=== PATIENT | male | born 1975 | race Caucasian/White ===

== ENCOUNTER 2017-09-04 17:02 | Emergency (ER) | payer OTHER ==
[2017-09-04 17:11] VITALS: RESP 18
--- NOTE | 2017-09-04 18:04 | EDPHY ---
H & P Time Seen by Provider: 09/04/17 17:53 HPI/ROS: CHIEF COMPLAINT: "Hernia pain" HISTORY OF PRESENT ILLNESS: This 42 y/o male presents with left-sided groin pain. He was skiing several days ago and fell. He has had aching lower abdominal pain since then. He endorses some difficulty with starting to urinate. The pain is primarily in his left groin area and is increased with movement, causing him to limp. He denies any testicle pain. He states his discomfort has prevented him from sleeping well for the past two nights. He has tried ibuprofen and CBD to treat his pain without much relief. The patient went for a routine checkup with his primary care provider several weeks ago and his pcp noted a possible indirect hernia in the area of a previous hernia repair. The patient had no pain at that time. He is concerned that his discomfort is related to a hernia. No fever, vomiting, dysuria, hematuria, or other associated symptoms. REVIEW OF SYSTEMS: A 10 point review of systems was performed and is negative with the exception of the elements mentioned in the history of present illness. Past Medical/Surgical History: Hernia repair Social History: Current tobacco use. Mother at bedside. Lives in [place]. Smoking Status: Current some day smoker Physical Exam: General Appearance: Alert, pleasant Eyes: Pupils equal and round, no conjunctival pallor or injection ENT, Mouth: Mucous membranes moist Neck: Normal inspection Respiratory: Lungs are clear to auscultation Cardiovascular: Regular rate and rhythm Gastrointestinal: Abdomen is soft and non-tender. No palpable hernia. Tenderness to inguinal fold. Neurological: A&O, nonfocal exam Skin: Warm and dry, no rash Extremities: Normal inspection, tenderness over the upper inner thigh, pain with left hip external rotation, antalgic gait Psychiatric: Mood and affect normal Constitutional: Initial Vital Signs Temperature (C) 36.7 C 09/04/17 17:08 Heart Rate 83 09/04/17 17:08 Respiratory Rate 18 09/04/17 17:08 Blood Pressure 166/96 H 09/04/17 17:08 O2 Sat (%) 97 09/04/17 17:08 O2 Delivery Mode Room Air Allergies/Adverse Reactions: No Known Allergies Allergy (Unverified 02/01/16 11:08) Home Medications: Medication Instructions Recorded EPINEPHRINE [EPIPEN] 0.3 mg IM ONCE #2 syr 02/01/16 Medical Decision Making - Diagnostics Imaging Results: Imaging Impressions Extremity Ultrasound 09/04/17 18:26 Impression: No evidence for recurrent hernia. Results discussed with Dr. Palacios. ED Course/Re-evaluation: 42 y/o male presents with left groin pain, consistent with groin strain. Clinically I do not suspect a recurrent hernia. However he was sent here for an ultrasound and he is quite concerned that he has a hernia. Plan for US to r/ o hernia. Plan for UA. 19:[address] Casarez, radiologist. US negative for hernia. UA negative for UTI or hematuria. Results d/w patient. Plan to d/c home in good condition. - Data Points Laboratory Results: 09/04/17 18:35 Urine Color YELLOW Urine Appearance CLEAR Urine pH 5.0 (5.0-7.5) Ur Specific [place] 1.014 (1.002-1.030) Urine Protein NEGATIVE (NEGATIVE) Urine Ketones TRACE H (NEGATIVE) Urine Blood NEGATIVE (NEGATIVE) Urine Nitrate NEGATIVE (NEGATIVE) Urine Bilirubin NEGATIVE (NEGATIVE) Urine Urobilinogen NEGATIVE EU EU (0.2-1.0) Ur Leukocyte Esterase NEGATIVE (NEGATIVE) Urine Glucose NEGATIVE (NEGATIVE) Departure - Departure Disposition: Home, Routine, Self-Care Clinical Impression: Groin strain Qualifiers: Encounter type: initial encounter Laterality: left Qualified Code(s): S76.212A - Strain of adductor muscle, fascia and tendon of left thigh, initial encounter Instructions: Groin Strain (ED) Additional Instructions: 1. Follow up with your primary care provider. 2. Take ibuprofen or Tylenol as directed below as needed for pain. 3. Return to the emergency department for worsening pain, swelling, numbness, weakness or other concerns. 4. Your ultrasound today does not show a hernia. Adult Pain & Fever Control: We recommend Acetaminophen (Tylenol) and Ibuprofen (Motrin,Advil) for pain and fever control. When fever is high or pain severe, both drugs can be used at the same time, but at different intervals. Please note the time differences. Your dose is: Acetaminophen 650mg every 4 to 6 hours Ibuprofen 600mg every 6-8 hours with food Note: do not take Acetaminophen with Hydrocodone (Vicodin, Lortab) or Oxycodone (Percocet). These medications also contain Acetaminophen. No more than 3000mg of Acetaminophen should be taken in 24 hours (for an adult). Referrals: Adair Pham DO [Primary Care Provider] - As per Instructions Report Scribed for: Kezia Palacios Report Scribed by: Raissa Zambrano Date of Report: 09/04/17 Time of Report: 18:03 Physician Review and Approval Statement: 09/04/17 18:04 Portions of this note were transcribed by a manager of medical. I personally performed a history, physical exam, medical decision making, and confirmed accuracy of information the transcribed note.
[2017-09-04 19:42] VITALS: BP 135/91; PULSE 77; TEMP 100; O2SAT 95
== END 2017-09-04 19:40 | disposition home or self-care (01) ==
DX: S76.212A Strain of adductor muscle, fascia and tendon of left thigh, initial encounter (principal); F17.200 Nicotine dependence, unspecified, uncomplicated; V00.321A Fall from snow-skis, initial encounter; Y99.8 Other external cause status; Y93.23 Activity, snow (alpine) (downhill) skiing, snowboarding, sledding, tobogganing and snow tubing